=== PATIENT | male | born 1950 | race Caucasian/White ===

== ENCOUNTER → 2018-06-10 08:31 | Outpatient (CLI) | payer OTHER, SELFPAY ==
[2018-06-10 10:23] LABS: Alanine Aminotransferase 62 IU/L (21-72); Albumin 4.5 g/dL (3.5-5.0); Albumin Globulin Ratio 1.6 (1.0-2.8); Alkaline Phosphatase 63 U/L (38-126); Aspartate Aminotransferase 37 IU/L (17-59); Bilirubin Total 0.9 mg/dL (0.2-1.3); Blood Urea Nitrogen 16 mg/dL (9-20); Carbon Dioxide 28 mmol/L (22-32); Chloride 103 mmol/L (98-107); Cholesterol 189 mg/dL (140-199); Estimated Glomerular Filt Rate > 60.0 mL/min (>60); Globulin 2.9 g/dL (1.7-4.1); Glucose 81 mg/dL (80-110); HDL Cholesterol 43 mg/dL (40-60); HEMOLYSIS < 15 (0-50); LDL Cholesterol Calculated 98 mg/dL (<100); Potassium 4.1 mmol/L (3.4-5.1); Sodium 140 mmol/L (137-145); Total Protein 7.4 g/dL (6.3-8.2); Triglycerides 239 mg/dL (35-150); Uric Acid 5.7 mg/dL (3.5-8.5)
[2018-06-10 10:39] LABS: Add Manual Diff / Slide Review NO; Basophils Absolute Auto 100 /uL (0-100); Basophils Percent Auto 1.4 % (0-2); Eosinophils Absolute Auto 100 /uL (0-450); Eosinophils Percent Auto 1.7 % (2-4); Hematocrit 52.3 % (41-53); Hemoglobin 17.6 g/dL (13.5-17.5); Lymphocytes Absolute Auto 1100 /uL (1100-4500); Lymphocytes Percent Auto 26.5 % (25-40); Mean Corpuscular HGB Conc 33.6 % (30-36); Mean Corpuscular Hemoglobin 31.9 PG (26-34); Mean Corpuscular Volume 94.7 fL (80-100); Monocytes Absolute Auto 400 /uL (0-900); Monocytes Percent Auto 10.7 % (3-14); Neutrophils Absolute Auto 2400 /uL (1500-7000); Neutrophils Percent Auto 59.7 % (50-75); Platelet Count 188 X10^3/uL (150-400); Red Blood Cell Count 5.52 X10^6/uL (4.5-5.9); Red Cell Distribution Width 13.5 % (11.6-14.8)
== END ==
PROVIDERS: Visit Provider Physician Assistant
DX: M10.9 Gout, unspecified (principal); E78.5 Hyperlipidemia, unspecified
CPT/HCPCS: 36415; 80053; 80061; 84550; 85025

== ENCOUNTER → 2019-02-10 18:51 | Outpatient (ROUT) | payer OTHER, SELFPAY ==
[2019-02-10 19:02] LABS: Add Manual Diff / Slide Review NO; Basophils Absolute Auto 0 /uL (0-100); Eosinophils Absolute Auto 100 /uL (0-450); Eosinophils Percent Auto 1.6 % (2-4); Hematocrit 50.4 % (41-53); Hemoglobin 17.4 g/dL (13.5-17.5); Lymphocytes Absolute Auto 1000 /uL (1100-4500); Lymphocytes Percent Auto 21.5 % (25-40); Mean Corpuscular HGB Conc 34.6 % (30-36); Mean Corpuscular Hemoglobin 32.7 PG (26-34); Mean Corpuscular Volume 94.6 fL (80-100); Monocytes Absolute Auto 400 /uL (0-900); Monocytes Percent Auto 8.1 % (3-14); Neutrophils Absolute Auto 3300 /uL (1500-7000); Neutrophils Percent Auto 67.8 % (50-75); Platelet Count 198 X10^3/uL (150-400); Red Blood Cell Count 5.33 X10^6/uL (4.5-5.9); Red Cell Distribution Width 13.5 % (11.6-14.8); White Blood Cell Count 4.8 X10^3/uL (4.5-11.0)
[2019-02-10 19:13] LABS: Alanine Aminotransferase 56 IU/L (<50); Albumin 4.3 g/dL (3.5-5.0); Albumin Globulin Ratio 1.6 (1.0-2.8); Alkaline Phosphatase 68 U/L (38-126); Aspartate Aminotransferase 40 IU/L (17-59); BUN Creatinine Ratio 16.4 (6-22); Bilirubin Total 0.7 mg/dL (0.2-1.3); Blood Urea Nitrogen 18 mg/dL (9-20); Calcium 10.1 mg/dL (8.4-10.2); Carbon Dioxide 28 mmol/L (22-32); Chloride 101 mmol/L (98-107); Cholesterol 204 mg/dL (140-199); Estimated Glomerular Filt Rate > 60.0 mL/min (>60); Globulin 2.7 g/dL (1.7-4.1); Glucose 123 mg/dL (80-110); HDL Cholesterol 44 mg/dL (40-60); HEMOLYSIS < 15 (0-50); Potassium 4.3 mmol/L (3.4-5.1); Sodium 139 mmol/L (137-145); Triglycerides 422 mg/dL (35-150); Uric Acid 5.5 mg/dL (3.5-8.5)
[2019-02-10 19:30] LABS: Vitamin D 25 Hydroxy (D3) 24.5 ng/mL (30.0-100.0)
== END ==
PROVIDERS: Visit Provider Physician Assistant
DX: M10.9 Gout, unspecified (principal); E78.2 Mixed hyperlipidemia; E55.9 Vitamin D deficiency, unspecified
CPT/HCPCS: 80053; 80061; 82306; 84550; 85025

== ENCOUNTER → 2019-10-21 14:14 | Outpatient (CLI) | payer OTHER, SELFPAY ==
[2019-10-22 06:11] LABS: COVID19 Sendout Not Detected (Not Detect)
== END ==
PROVIDERS: PCP Physician Assistant; Visit Provider Physician Assistant
DX: Z11.59 Encounter for screening for other viral diseases (principal)
CPT/HCPCS: 87635

== ENCOUNTER 2019-10-24 13:17 | Day surgery (SDC) | payer OTHER, SELFPAY ==
--- NOTE | 2019-10-24 | PATH_ITS ---
[facility] Accession Number: [id number] . 01 Material submitted: . PART A: cecum - CECAL POLYP PART B: colon - COLON POLYP AT 90CM PART C: colon - COLON POLYP AT 65 CM PART D: colon - COLON POLYP AT 50CM . 01 Clinical history: . SCREENING COLONOSCOPY . 02 Diagnosis: A. Cecal Polyp: Superficial portion of colorectal mucosa times one with no significant histomorphologic abnormality. Additional levels through the block are noncontributory. . B. Colon Polyp at 90 cm: Portions of tubular adenoma x 3. . C. Colon polyp at 65 cm: Tubular adenoma. . D. Colon polyp at 50 cm: Tubular adenoma. [facility] 10/27/2019 1850 Local . 02 Electronically signed: . Carmita Diaz MD, Pathologist NPI- [id number] . 01 Gross description: . A. Received in formalin and labeled with cecal polyp is one fragment of sanchez soft tissue measuring 0.5 x 0.3 x 0.1 cm. The fragment is entirely submitted in cassette A1. B. Received in formalin and labeled with 90 cm-colon polyp are three pieces of sanchez soft tissue measuring 0.5 x 0.5 x 0.4 to 0.5 x 0.3 x 0.1 cm. The first piece is inked, bisected and entirely submitted in cassette B1. The second piece is inked, bisected and entirely submitted in cassette B2. The third piece is inked and entirely submitted in cassette B2. The total pieces for cassette B2 are three. C. Received in formalin and labeled with colon polyp at 65 cm is one fragment of sanchez soft tissue measuring 0.3 x 0.3 x 0.3 cm. The fragment is entirely submitted in cassette C1. D. Received in formalin and labeled with colon polyp at 50 cm is one fragment of sanchez soft tissue measuring 0.3 x 0.3 x 0.3 cm. The fragment is entirely submitted in cassette D1. ([id number]) /MRV 10/25/2019 1100 Local . 02 Pathologist provided ICD-10: K63.5, Z12.11 . 02 CPT . 820071, 792378, 385509, 994055 Performed at: 01 [facility] [address] [id number] MD Jordan Frausto MD Phone: [phone] Performed at: 02 [facility] [place] [address] [place], [place] [id number] MD Dasha Spivey MD Phone: [phone]
[2019-10-24 13:35] VITALS: BP 138/87; PULSE 88; RESP 15; TEMP 36.7; O2SAT 98; BMI 30.1
[2019-10-24] MEDS: SODIUM CHLORIDE 0.9% 1,000 ML 200 ML IV (13:49)
--- NOTE | 2019-10-24 14:32 | PM.HP.1 ---
History of Present Illness History of Present Illness Date Patient Seen: 10/24/19 Time Patient Seen: 14:32 Chief complaint: SCREENING COLONOSCOPY Narrative: This is a 69-year-old man who had 1 prior colonoscopy which he thinks was about 20 years ago. He does not remember in detail the findings, and I do not have the note from that procedure, but he believes he was told it was fine.Denies any symptoms of melena, hematochezia, unexplained weight loss, unexplained abdominal pain. He is adopted and does not know his family history regarding polyps or colon cancers. He has a history of obstructive sleep apnea, kidney stones, headaches/migraines, gout, hyperlipidemia. ROS: Reports headaches/migraines. Denies nausea. Thirteen system review is otherwise negative other than as mentioned below and in HPI. PE GENERAL: Well groomed and cooperative. Appears stated age. Answers questions promptly and appropriately. Vital signs noted. HENT: Normocephalic, atraumatic. Hearing intact. EYES: Conjunctiva pink, sclera white, no periorbital swelling. CARDIOVASCULAR: Regular rate. No pedal edema. RESPIRATORY: Non-tachypneic, breathing comfortably on room air. GASTROINTESTINAL: Abdomen soft and non-distended GENITALURINARY: No flank tenderness. MUSCULOSKELETAL: Equal tone and mass bilaterally. SKIN: Warm, dry, soft, appropriate color for ethnicity. No other lesions, rashes, or wounds. NEURO: Alert and Oriented X 3. No gross sensory deficits, or cognitive issues. PSYCH: Appropriate affect and mood. Patient History Medical History Excessive daytime sleepiness (Chronic) Gout (Chronic) Migraine with aura (Chronic 10/20/10) Obstructive sleep apnea (Chronic) Snoring (Chronic) Surgical History Status post appendectomy Family & Social History Family History Unknown No problems noted. Social History: household members spouse Tobacco & Substance use: Smoking Status Never smoker alcohol intake current alcohol intake frequency a few times a week Substance Use Type does not use Meds Home Medications and Allergies Home Medications Medication Instructions Recorded Confirmed Type allopurinol 150 mg PO DAILY 10/24/19 10/24/19 History cholecalciferol (vitamin D3) 50 mcg PO DAILY 10/24/19 10/24/19 History [Vitamin D3] indomethacin 50 mg PO DAILY 10/24/19 10/24/19 History rizatriptan 20 mg PO DAILY PRN 10/24/19 10/24/19 History Allergies Allergy/AdvReac Type Severity Reaction Status Date / Time No Known Drug Allergies Allergy Unverified 10/20/18 09:32 Exam Vital Signs (past 8 hours): - 10/24/19 13:35 Temperature 98.0 F Pulse Rate 88 Respiratory Rate 15 Blood Pressure 138/87 Pulse Oximetry 98 Oxygen Delivery Method Room Air Assessment & Plan Assessment and plan (1) At average risk for colon cancer: Status: Acute Assessment & Plan narrative: Risks and benefits of screening colonoscopy and possible polypectomy were discussed with the patient including risk of bleeding, perforation, need for additional procedures, risks of anesthesia. The patient desires to proceed with the colonoscopy procedure. COVID-19 COVID-19 status: Negative Result date/Date tested (Pos, Neg/Pending): 10/21/19 Time Spent With Patient Time with patient: 15-24 minutes Quality VTE Deep Vein Thrombosis/Pulmonary Embolism Present on Admission: No
--- NOTE | 2019-10-24 14:36 | PM.OP.ENDO ---
Operative Date/Time/Diagnoses Date of procedure: 10/24/19 Time of procedure: 14:36 Pre-op diagnosis: Average risk for colon cancer, due for screening colonoscopy Post-op diagnosis: other (Multiple adenomatous appearing polyps) Procedure & Clinicians Study performed: Colonoscopy Procedural sedation performed by the endoscopy Polypectomy with hot snare x1 and cold forceps x3 Same procedure as scheduled: Yes Indications: Prior colonoscopy 20 years ago, overdue for repeat colonoscopy at this time Surgeon: Renetta Murphy Procedure Notes SCOAP/Timeout: Performed Procedure in detail: The patient was brought to the room and placed in left lateral decubitus position with all bony prominences padded. A time-out was performed and then the patient was given procedural sedation starting with 4 mg of Versed and 100 mcg of fentanyl. A total of 6 mg of Versed and 200 micro g of fentanyl were given for the entire procedure. Vitals were monitored throughout the procedure and remained stable. Once adequately sedated, the procedure was begun. A rectal exam was performed revealing no abnormalities. The colonoscope was then introduced to the rectum and advanced to the cecum in the usual fashion. Colon was quite tortuous and required multiple maneuvers to reach the cecum safely. The cecum was identified by the appendiceal orifice, the mucosal tri-fold, and the ileocecal valve. The scope was then retracted while rotating side to side and examining each mucosal fold. Multiple polyps were found throughout the colon. A small cecal polyp was seen and removed near the appendiceal orifice using cold forceps. A 1 cm polyp was removed from the ascending colon at 90 cm using hot snare. 5 mm polyp was removed from 65 cm with cold forceps. Another 5 mm polyp was removed from 50 cm with cold forceps. At the conclusion of the procedure retroflexion was performed and small grade 1-2 internal hemorrhoids without stigmata of bleeding were seen. The scope was then withdrawn from the rectum the procedure was concluded. The patient tolerated the procedure well and was transferred to the PACU in stable condition. Scope withdrawal time: 15 Sedation minutes: 29 Findings: polyp (For polyps removed. One from cecum, 90 cm, 65 cm and 50 cm) Specimen(s): other (Polyps as above) Complications: none Impression: Multiple polyps throughout the colon Post-procedure Recommendations: Colonscopy in 5 years (Depending on pathology) Follow up: as needed Disposition: PACU
[2019-10-24] MEDS: MIDAZOLAM 5 MG/5 ML VIAL IV ×3 (14:39→14:49)
[2019-10-24] MEDS: fentaNYL 250 MCG/5 ML INJ IV ×3 (14:39→14:49)
[2019-10-24 15:15] VITALS: BP 120/73; PULSE 84; RESP 12; TEMP 36.7; O2SAT 93
[2019-10-24 15:20] VITALS: BP 128/79; PULSE 88; RESP 16; O2SAT 93
--- NOTE | 2019-10-24 15:22 | SUR.PHASEI ---
Report received from MICHAEL Matias. Bilat hearing aids in place.
[2019-10-24 15:24] VITALS: BP 128/85; PULSE 87; RESP 14; TEMP 36.9; O2SAT 93
[2019-10-24 15:26] VITALS: BP 132/85; PULSE 81; RESP 16; TEMP 36.7; O2SAT 93
[2019-10-24 15:44] VITALS: BP 123/78; PULSE 80; RESP 16; TEMP 36.7; O2SAT 93
== END 2019-10-24 15:55 | disposition home or self-care (01) ==
PROVIDERS: PCP Physician Assistant; Referring Provider Physician Assistant; Visit Provider Surgery
PROC: 0DJD8ZZ Inspection of Lower Intestinal Tract, Via Natural or Artificial Opening Endoscopic (ICD-10-PCS; CPT 45378; principal; 2019-10-24 14:30)
DX: Z12.11 Encounter for screening for malignant neoplasm of colon (principal); K64.1 Second degree hemorrhoids; G47.33 Obstructive sleep apnea (adult) (pediatric); E78.5 Hyperlipidemia, unspecified; D12.0 Benign neoplasm of cecum
CPT/HCPCS: 45385; 45380; 99152; 99153; J2250; J3010

== ENCOUNTER → 2020-12-30 08:43 | Outpatient (CLI) | payer OTHER, SELFPAY ==
[2020-12-30 13:55] LABS: COVID19 -Nasal RAPID Negative (Negative)
== END ==
PROVIDERS: PCP Physician Assistant; Visit Provider Physician Assistant
DX: Z20.822 Contact with and (suspected) exposure to COVID-19 (principal); Z01.812 Encounter for preprocedural laboratory examination
CPT/HCPCS: 87635; C9803

== ENCOUNTER 2020-12-31 06:56 | Day surgery (SDC) | payer OTHER, SELFPAY ==
[2020-12-31] MEDS: PROPARACAINE 0.5% OPHTH SOL 2 DROPS EYE-OP (07:19)
[2020-12-31] MEDS: CATARACT EYE COMPOUND (10 DROPS/SYRINGE) 3 DROPS EYE-OP (07:20)
[2020-12-31 07:23] VITALS: BP 130/79; PULSE 75; RESP 20; TEMP 36.9; O2SAT 96; BMI 30.8
--- NOTE | 2020-12-31 08:32 | PM.PREOP ---
Pre-operative Note Interval Note History & Physical reviewed/Exam performed by Physician: Yes Changes to H&P: No
--- NOTE | 2020-12-31 08:32 | PM.OP.1 ---
Operative Date/Time/Diagnoses Pre-op diagnosis: Nuclear Cataract Left eye Post-op diagnosis: same Procedure & Clinicians Same procedure as scheduled: Yes Surgeon: Delfin English Anesthesia Type: MAC +/- and Sedation Operative Notes Procedure in detail: Patient brought to the operating suite. Tetracaine drops placed in the left eye. Patient was prepped and draped in sterile manner. Wire lid speculum was placed in the eye. Betadine drops were placed on the eye. This was irrigated. Lidocaine jelly was placed on the eye. A paracentesis port was created with a side-port blade. 0.1 mL 1% preservative free lidocaine was injected into the anterior chamber. The anterior chamber was deepened with viscoelastic. 2.6 mm keratome was used to create a temporal clear corneal incision. Cystotome and Utrata forceps were used to create continuous tear capsulorrhexis. Balanced salt solution was used to hydro dissect the nucleus. The phacoemulsification handpiece was inserted and the nucleus was removed using the stop and chop technique. The irrigation aspiration handpiece was inserted and the remaining cortex was removed. Anterior chamber was deepened with viscoelastic. An Rosa DIB00 intraocular lens with a power of 19.0 was injected into the capsular bag. Irrigation aspiration handpiece was inserted and the remaining viscoelastic was removed. Incision was hydrated with balanced salt solution and found to be leak free with pressure with Weck-Carley sponges. 0.1 mL Vigamox injected anterior chamber. 0.3 mL Kenalog 10 mg was injected subconjunctivally. Lid speculum was removed. The patient left the operating room in excellent condition. Complications: none Post-operative Condition: stable Disposition: same day surgery
[2020-12-31] MEDS: HYALURONATE SODIUM 30 MG-10 MG/ML SYRINGES 1 BOX INTRAOCULA (08:51)
[2020-12-31] MEDS: TRIAMCINOLONE 50 MG/5 ML VIAL INJ (08:51)
[2020-12-31] MEDS: PHENYLEPHRINE/LIDOCAINE VIAL (OR) 0.2 ML EYE-OP (08:51)
[2020-12-31] MEDS: MOXIFLOXACIN INJ 4 MG/0.8 ML VIAL 0.5 MG EYE-OP (08:51)
[2020-12-31] MEDS: BALANCED SALT IRRIG SOLN NO.2 500 ML, EPINEPHrine 1 MG IRR (08:52)
[2020-12-31] MEDS: LIDOCAINE 2% (GLYDO) 6 ML GEL TOP (08:52)
[2020-12-31] MEDS: TETRACAINE 0.5% OPHTH DROPS 4 ML 2 DROPS EYE-OP (08:52)
[2020-12-31 09:10] VITALS: BP 119/77; PULSE 67; RESP 16; TEMP 36.6; O2SAT 98
== END 2020-12-31 09:29 | disposition home or self-care (01) ==
PROVIDERS: PCP Physician Assistant; Referring Provider Ophthalmology; Visit Provider Ophthalmology
PROC: (CPT 66984; principal; 2020-12-31 08:45)
DX: H25.12 Age-related nuclear cataract, left eye (principal); G47.33 Obstructive sleep apnea (adult) (pediatric)
CPT/HCPCS: 66984; J0171; J2250; J3010; J3301

== ENCOUNTER → 2021-01-27 14:09 | Outpatient (CLI) | payer OTHER, SELFPAY ==
[2021-01-27 16:54] LABS: COVID19 -Nasal RAPID Negative (Negative)
== END ==
PROVIDERS: PCP Physician Assistant; Referring Provider Nurse Practitioner Family; Visit Provider Nurse Practitioner Family
DX: Z20.822 Contact with and (suspected) exposure to COVID-19 (principal)
CPT/HCPCS: 87635

== ENCOUNTER 2021-01-28 07:02 | Day surgery (SDC) | payer OTHER, SELFPAY ==
[2021-01-28 07:32] VITALS: BP 133/80; PULSE 74; RESP 16; TEMP 36.8; O2SAT 97; BMI 30.8
[2021-01-28 07:40] VITALS: BP 133/80; PULSE 75; RESP 16; TEMP 36.8; O2SAT 97
[2021-01-28] MEDS: PROPARACAINE 0.5% OPHTH SOL 2 DROPS EYE-OP (07:42)
[2021-01-28] MEDS: CATARACT EYE COMPOUND (10 DROPS/SYRINGE) 3 DROPS EYE-OP (07:43)
--- NOTE | 2021-01-28 08:38 | PM.PREOP ---
Pre-operative Note Interval Note History & Physical reviewed/Exam performed by Physician: Yes Changes to H&P: No
--- NOTE | 2021-01-28 08:39 | PM.OP.1 ---
Operative Date/Time/Diagnoses Pre-op diagnosis: Nuclear cataract right eye Procedure & Clinicians Procedure: Cataract Surgery Same procedure as scheduled: Yes Surgeon: Delfin English Anesthesia Type: MAC +/- and Sedation Operative Notes Procedure in detail: Patient brought to the operating suite. Tetracaine drops placed in the right eye. Patient was prepped and draped in sterile manner. Wire lid speculum was placed in the eye. Betadine drops were placed on the eye. This was irrigated. Lidocaine jelly was placed on the eye. A paracentesis port was created with a side-port blade. 0.1 mL 1% preservative free lidocaine was injected into the anterior chamber. The anterior chamber was deepened with viscoelastic. 2.6 mm keratome was used to create a temporal clear corneal incision. Cystotome and Utrata forceps were used to create continuous tear capsulorrhexis. Balanced salt solution was used to hydro dissect the nucleus. The phacoemulsification handpiece was inserted and the nucleus was removed using the stop and chop technique. The irrigation aspiration handpiece was inserted and the remaining cortex was removed. Anterior chamber was deepened with viscoelastic. An Rosa DIB00 intraocular lens with a power of 19.5 was injected into the capsular bag. Irrigation aspiration handpiece was inserted and the remaining viscoelastic was removed. Incision was hydrated with balanced salt solution and found to be leak free with pressure with Weck-Carley sponges. 0.1 mL Vigamox injected anterior chamber. 0.3 mL Kenalog 10 mg was injected subconjunctivally. Lid speculum was removed. The patient left the operating room in excellent condition. Complications: none Post-operative Condition: stable Disposition: same day surgery
[2021-01-28] MEDS: PHENYLEPHRINE/LIDOCAINE VIAL (OR) 0.2 ML EYE-OP (08:54)
[2021-01-28] MEDS: HYALURONATE SODIUM 30 MG-10 MG/ML SYRINGES 1 BOX INTRAOCULA (08:54)
[2021-01-28] MEDS: MOXIFLOXACIN INJ 4 MG/0.8 ML VIAL 0.5 MG EYE-OP (08:54)
[2021-01-28] MEDS: BALANCED SALT IRRIG SOLN NO.2 500 ML, EPINEPHrine 1 MG IRR (08:55)
[2021-01-28] MEDS: TRIAMCINOLONE 50 MG/5 ML VIAL INJ (08:55)
[2021-01-28] MEDS: TETRACAINE 0.5% OPHTH DROPS 4 ML 2 DROPS EYE-OP (08:56)
[2021-01-28] MEDS: LIDOCAINE 2% (GLYDO) 6 ML GEL TOP (08:56)
[2021-01-28 09:32] VITALS: BP 129/83; PULSE 78; RESP 16; TEMP 36.7; O2SAT 97
== END 2021-01-28 09:31 | disposition home or self-care (01) ==
PROVIDERS: PCP Physician Assistant; Referring Provider Ophthalmology; Visit Provider Ophthalmology
PROC: (CPT 66984; principal; 2021-01-28 08:45)
DX: H25.11 Age-related nuclear cataract, right eye (principal); G43.909 Migraine, unspecified, not intractable, without status migrainosus; G47.33 Obstructive sleep apnea (adult) (pediatric); E66.9 Obesity, unspecified; Z68.31 Body mass index [BMI] 31.0-31.9, adult
CPT/HCPCS: 66984; J0171; J2250; J3301

== ENCOUNTER → 2022-05-26 12:05 | Outpatient (CLI) | payer OTHER, SELFPAY ==
[2022-05-26 12:52] LABS: BUN Creatinine Ratio 16.3 (6-22); Blood Urea Nitrogen 15 mg/dL (9-20); Calcium 9.1 mg/dL (8.4-10.2); Carbon Dioxide 30 mmol/L (22-32); Chloride 104 mmol/L (98-107); Estimated Glomerular Filt Rate > 60 mL/min (>60); Glucose 93 mg/dL (80-110); HEMOLYSIS 18 (0-50); Sodium 141 mmol/L (137-145)
== END ==
PROVIDERS: Referring Provider Physician Assistant; Visit Provider Physician Assistant
DX: U07.1 COVID-19 (principal)
CPT/HCPCS: 36415; 80048

== ENCOUNTER → 2022-09-07 14:19 | Outpatient (CLI) | payer OTHER, SELFPAY ==
--- NOTE | 2022-09-07 14:23 | DI.RAD.S_ITS ---
PROCEDURE: XR KNEE LT 3V INDICATIONS: left lateral knee mass TECHNIQUE: 3 views of the knee were acquired. COMPARISON: None. FINDINGS: Bones: No fractures or dislocations. No suspicious bony lesions. Osteoarthritic changes with mild medial compartment joint space narrowing. Mild osteophyte formation. Soft tissues: Small joint effusion. No suspicious soft tissue calcifications. No soft tissue masses are identified. IMPRESSION: 1. Mild osteoarthritic changes of the knee with mild medial joint space narrowing. 2. No soft tissue masses are identified. If clinically indicated, further evaluation with CT or MRI may be of value. Dictated by: Ari Cotto M.D. on 09/07/2022 at 17:54 Approved by: Ari Cotto M.D. on 09/07/2022 at 17:56
[2022-09-07 15:43] LABS: Hematocrit 48.5 % (41-53); Mean Corpuscular Hemoglobin 32.6 PG (26-34); Platelet Count 194 X10^3/uL (150-400); Red Blood Cell Count 5.21 X10^6/uL (4.5-5.9); Red Cell Distribution Width 13.6 % (11.6-14.8); White Blood Cell Count 5.2 X10^3/uL (4.5-11.0)
[2022-09-07 15:57] LABS: Alanine Aminotransferase 66 IU/L (<50); Albumin 4.2 g/dL (3.5-5.0); Albumin Globulin Ratio 1.4 (1.0-2.8); Alkaline Phosphatase 72 U/L (38-126); Aspartate Aminotransferase 39 IU/L (17-59); BUN Creatinine Ratio 16.9 (6-22); Bilirubin Total 0.7 mg/dL (0.2-1.3); Blood Urea Nitrogen 15 mg/dL (9-20); Calcium 9.3 mg/dL (8.4-10.2); Carbon Dioxide 27 mmol/L (22-32); Chloride 104 mmol/L (98-107); Cholesterol 196 mg/dL (140-199); Estimated Glomerular Filt Rate > 60 mL/min (>60); Globulin 3.1 g/dL (1.7-4.1); Glucose 77 mg/dL (80-110); HDL Cholesterol 45 mg/dL (40-60); HEMOLYSIS 16 (0-50); Sodium 140 mmol/L (137-145); Total Protein 7.3 g/dL (6.3-8.2); Triglycerides 408 mg/dL (35-150)
[2022-09-07 15:58] LABS: Uric Acid 6.4 mg/dL (3.5-8.5)
[2022-09-07 16:34] LABS: TSH w/ Reflex to FT4 0.98 uIU/mL (0.47-4.68)
== END ==
PROVIDERS: PCP Internal Medicine; Referring Provider Internal Medicine; Visit Provider Internal Medicine
DX: E78.2 Mixed hyperlipidemia (principal); N40.0 Benign prostatic hyperplasia without lower urinary tract symptoms; R22.42 Localized swelling, mass and lump, left lower limb; M10.9 Gout, unspecified
CPT/HCPCS: 36415; 73562; 80053; 80061; 84153; 84443; 84550; 85027

== ENCOUNTER → 2023-11-17 10:48 | Outpatient (CLI) | payer OTHER, SELFPAY ==
[2023-11-17 13:29] LABS: HEMOLYSIS < 15 (0-50)
[2023-11-17 13:35] LABS: Aspartate Aminotransferase 28 IU/L (17-59); BUN Creatinine Ratio 18.9 (6-22); Blood Urea Nitrogen 17 mg/dL (9-20); Calcium 9.6 mg/dL (8.4-10.2); Carbon Dioxide 27 mmol/L (22-32); Chloride 104 mmol/L (98-107); Cholesterol 132 mg/dL (140-199); Estimated Glomerular Filt Rate > 60 mL/min (>60); Glucose 84 mg/dL (80-110); HDL Cholesterol 51 mg/dL (40-60); LDL Cholesterol Calculated 30 mg/dL (<100); Potassium 4.2 mmol/L (3.4-5.1); Sodium 138 mmol/L (137-145); Triglycerides 255 mg/dL (35-150)
[2023-11-17 19:22] LABS: Prostate Specific Antigen 3.93 ng/mL (0.10-4.00)
[2023-11-18 16:42] LABS: Hep C Virus Ab w/Reflex Quant NEGATIVE s/c (NEGATIVE)
== END ==
PROVIDERS: PCP Internal Medicine; Referring Provider Internal Medicine; Visit Provider Internal Medicine
DX: E78.2 Mixed hyperlipidemia (principal); N40.1 Benign prostatic hyperplasia with lower urinary tract symptoms; N13.8 Other obstructive and reflux uropathy; Z20.9 Contact with and (suspected) exposure to unspecified communicable disease; M10.9 Gout, unspecified
CPT/HCPCS: 36415; 80048; 80061; 84153; 84450; 86803

== ENCOUNTER 2024-02-13 23:24 | Emergency (ER) | payer OTHER, SELFPAY ==
[2024-02-13 23:35] VITALS: BP 175/95; PULSE 66; RESP 18; TEMP 36.7; O2SAT 96; BMI 30.8
--- NOTE | 2024-02-13 23:41 | PC.NURSE ---
Unable to provide urine sample at this time. States voided [employer].
[2024-02-14 00:50] VITALS: BP 170/94; PULSE 64; RESP 18; O2SAT 98
[2024-02-14 01:33] VITALS: BP 169/91; PULSE 91; RESP 16; O2SAT 96
--- NOTE | 2024-02-14 02:23 | ED_ITS ---
HPI - Back Pain/Injury General Chief Complaint: Back Pain/Injury Stated Complaint: lower back pain lt side Time Seen by Provider: 02/14/24 02:23 Source: patient History of Present Illness HPI Narrative: Patient is a healthy 74-year-old male who presents today with left-sided flank pain. He reports that he has been doing some heavy lifting and physical activity lately. He dug it did show a few days ago and then yesterday he moved very heavy piece of equipment. He has been holding it in a position of comfort he notices when he reaches up he has pain certain positions definitely reproduced pain. He has no numbness or tingling down his leg he has no pain r adiating to his abdomen. No loss of urine. He did take 1 tablet of ibuprofen without any significant relief. Related Data Home Medications Medication Instructions Recorded Confirmed cholecalciferol (vitamin D3) 50 50 mcg PO DAILY 10/24/19 11/17/23 mcg (2,000 unit) capsule (Vitamin D3) Previous Rx's Medication Instructions Recorded allopurinol 100 mg tablet 100 mg PO DAILY #90 tabs 11/17/23 rizatriptan 10 mg tablet 20 mg (2 x 10 mg) PO DAILY PRN 11/17/23 migraines #12 tabs rosuvastatin 10 mg tablet 10 mg PO DAILY #90 tabs 11/17/23 methocarbamol 750 mg tablet 750 mg PO Q8H PRN muscle spasm #14 02/14/24 tabs Allergies Allergy/AdvReac Type Severity Reaction Status Date / Time wool Allergy Mild Sneezing Verified 11/17/23 09:50 Patient History Medical History Obesity (BMI 30.0-34.9) Migraine without aura History of colonic polyps Mixed hyperlipidemia Adopted [place] Chicken pox Hearing loss (~1971) Kidney stones (~2012) Gout Excessive daytime sleepiness Snoring Obstructive sleep apnea (~2019) Surgical History Cyst (~1964) Anesthesia Ganglion cyst of dorsum of right wrist (~1977) History of lithotripsy (~2012) Status post appendectomy (~1957) Family History Unknown No problems noted. Social History details: , 1 son, retired high school ironworker apprentice shop household members: spouse Smoking Status: Never smoker alcohol intake: current Smoking Status: Never smoker alcohol intake frequency: a few times a week Exam Initial Vital Signs Initial Vital Signs: Vital Signs Temperature 98.0 F 02/13/24 23:35 Pulse Rate 66 02/13/24 23:35 Respiratory Rate 18 02/13/24 23:35 Blood Pressure 175/95 H 02/13/24 23:35 Pulse Oximetry 96 02/13/24 23:35 Oxygen Delivery Method Room Air 02/13/24 23:35 GENERAL: Alert very pleasant 74-year-old male CARDIOVASCULAR: peripheral pulses in tact, cap refill <2 sec RESPIRATORY: No respiratory distress, speaks in full sentences without diffi culty BACK: No vertebral tenderness he is tender over on left paraspinal and lumbar area. It is reproducible to palpation no buttock pain ABDOMEN: Soft nontender EXTREMITIES: Normal range of motion, no clubbing or edema. Neurovascularly intact NEUROLOGICAL: Cranial nerves II through XII grossly intact. Normal gait and speech. SKIN: Warm, dry, no petechiae, no rashes or lesions. Course Orders Ordered: Discontinued Medications Ketorolac Tromethamine (Ketorolac 30 Mg/Ml Vial) 30 mg IM NOW ONE Stop: 02/14/24 02:34 Last Admin: 02/14/24 02:38 Dose: 30 mg Documented By: LANG Methocarbamol (Methocarbamol 500 Mg Tablet) 750 mg PO NOW ONE Stop: 02/14/24 02:34 Last Admin: 02/14/24 02:39 Dose: 750 mg Documented By: LANG Vital Signs Vital signs: Vital Signs - 8 hr 02/13/24 23:35 02/14/24 00:50 02/14/24 01:33 Temperature 98.0 F Pulse Rate 66 64 91 H Respiratory Rate 18 18 16 Blood Pressure 175/95 H 170/94 H 169/91 H Pulse Oximetry 96 98 96 Oxygen Delivery Method Room Air Room Air Room Air 02/14/24 02:41 Temperature 98.7 F Pulse Rate 61 Respiratory Rate 18 Blood Pressure 163/97 H Pulse Oximetry 100 Oxygen Delivery Method Room Air MDM - Back Pain/Injury Lab Data Labs: Urine Dip Bedside Urine Glucose Negative Bedside Urine Bilirubin - Negative Bedside Urine Ketone - Negative Urine Specific [place] 1.01 Bedside Urine Occult Blood - Negative Bedside Urine pH 6 Bedside Urine Protein - Negative Bedside Urine Urobilinogen - Negative Bedside Urine Nitrite - Negative Bedside Urine Leukocytes - Negative Esterase MDM Narrative Medical decision making narrative: 74-year-old male presenting today with left-sided back pain. It is reproducible to palpation. He does have history of lifting heavy machinery and physical labor. I suspect musculoskeletal. He has no signs or symptoms of cauda equina. It has not consistent with nephrolithiasis. Also urinalysis does not show any hematuria or other evidence of UTI. Patient was given shot of Toradol here in the ED. Long discussion about other things he can do and take home Discharge Plan Departure Patient Disposition: Home Clinical Impression: Back pain Instructions: DI for Back Strain or Sprain Activity Restrictions/Additional Instructions: *You have been diagnosed with back pain *What to do: At this time increase activity as tolerated no strenuous activity or heavy lifting Recommend heating pad light stretching, consider massage May try ugjl-snx-rqigozx CVD or arnica cream *Continue to take medications as directed Lidocaine patches tdjx-pbd-gheiecs maybe 1 for 12 hours then remove Motrin 600 mg every 6 hours for htvb-qk-zjwgujje pain Tylenol 1000 mg every 6 hours for lxvh-go-yzeccmmt pain Methocarbamol 750 mg every 8 hours if needed for muscle spasm *Follow up with your primary care provider in 2-3 days or call [phone] *Return to ER if you should have increasing pain leg weakness loss of urine or any new, worsening or concerning symptoms Prescriptions: New methocarbamol 750 mg tablet 750 mg PO Q8H PRN (Reason: muscle spasm) Qty: 14 0RF No Action allopurinol 100 mg tablet 100 mg PO DAILY Qty: 90 3RF rosuvastatin 10 mg tablet 10 mg PO DAILY Qty: 90 3RF rizatriptan 10 mg tablet 20 mg PO DAILY PRN (Reason: migraines) Qty: 12 2RF Rx Instructions: may repeat if needed cholecalciferol (vitamin D3) [Vitamin D3] 50 mcg (2,000 unit) Capsule 50 mcg PO DAILY Referrals: Jef Walters MD [Primary Care Provider] - Stand Alone Forms: Patient Portal/API/Survey
[2024-02-14] MEDS: KETOROLAC 30 MG/ML VIAL IM (02:38)
[2024-02-14] MEDS: methocarbamoL 500 MG TABLET 750 MG PO (02:39)
[2024-02-14 02:41] VITALS: BP 163/97; PULSE 61; RESP 18; TEMP 37.1; O2SAT 100
== END 2024-02-14 02:47 | disposition home or self-care (01) ==
PROVIDERS: Emergency Provider Emergency Medicine; PCP Internal Medicine
DX: M54.50 Low back pain, unspecified (principal)
CPT/HCPCS: 81003; 96372; 99283; 99284; J1885

== ENCOUNTER → 2024-11-22 09:29 | Outpatient (CLI) | payer OTHER, SELFPAY ==
--- NOTE | 2024-11-22 09:32 | DI.RAD.S_ITS ---
PROCEDURE: XR SHOULDER RT MIN 2V INDICATIONS: right shoulder pain TECHNIQUE: Three views of the right shoulder were acquired. COMPARISON: None. FINDINGS: Bones: There are no osseous abnormalities. Acromioclavicular and glenohumeral joints: Moderate acromioclavicular and mild glenohumeral degeneration noted . Soft tissues: No soft tissue swelling, calcification or mass. IMPRESSION: Degeneration Dictated by: Jayce Ricardo M.D. on 11/23/2024 at 13:27 Approved by: Jayce Ricardo M.D. on 11/23/2024 at 13:28
[2024-11-22 10:52] LABS: Hematocrit 48.9 % (41-53); Hemoglobin 16.8 g/dL (13.5-17.5); Mean Corpuscular HGB Conc 34.4 % (30-36); Mean Corpuscular Hemoglobin 31.9 PG (26-34); Mean Corpuscular Volume 92.8 fL (80-100); Platelet Count 199 X10^3/uL (150-400)
[2024-11-22 11:01] LABS: Alanine Aminotransferase 39 IU/L (<50); Albumin 4.4 g/dL (3.5-5.0); Albumin Globulin Ratio 1.5 (1.0-2.8); Alkaline Phosphatase 58 U/L (38-126); Blood Urea Nitrogen 19 mg/dL (9-20); Calcium 9.7 mg/dL (8.4-10.2); Carbon Dioxide 26 mmol/L (22-32); Chloride 106 mmol/L (98-107); Cholesterol 129 mg/dL (140-199); Estimated Glomerular Filt Rate > 60 mL/min (>60); Globulin 2.9 g/dL (1.7-4.1); Glucose 89 mg/dL (70-99); HDL Cholesterol 56 mg/dL (40-60); HEMOLYSIS < 15 (0-50); Potassium 4.6 mmol/L (3.4-5.1); Sodium 140 mmol/L (137-145); Total Protein 7.3 g/dL (6.3-8.2); Triglycerides 212 mg/dL (35-150); Uric Acid 7.1 mg/dL (3.5-8.5)
[2024-11-22 11:25] LABS: Prostate Specific Antigen 4.89 ng/mL (0.10-4.00)
== END ==
PROVIDERS: PCP Internal Medicine; Referring Provider Internal Medicine; Visit Provider Internal Medicine
DX: M19.011 Primary osteoarthritis, right shoulder (principal); M25.512 Pain in left shoulder; E78.2 Mixed hyperlipidemia; N40.1 Benign prostatic hyperplasia with lower urinary tract symptoms; M1A.9XX0 Chronic gout, unspecified, without tophus (tophi); N13.8 Other obstructive and reflux uropathy
CPT/HCPCS: 36415; 73030; 80053; 80061; 84153; 84550; 85027